=== PATIENT | male | born 1950 | race Hispanic/Latino ===

== ENCOUNTER 2018-04-05 14:02 | Emergency (ER) | payer MEDICARE, SELFPAY ==
[2018-04-05 14:03] VITALS: BP 149/73; PULSE 78; RESP 20; TEMP 36.7; O2SAT 95; BMI 32.3
[2018-04-05] MEDS: Ondansetron 4 MG/2 ML Vial IM (14:50)
[2018-04-05] MEDS: Morphine 4 MG/ML Syringe 8 MG IM (14:50)
[2018-04-05 14:56] VITALS: O2SAT 97
--- NOTE | 2018-04-05 15:17 | ED.DEP ---
ED Disposition - Plan for ED Patient: Chief Complaint: Shortness of Breath Instructions: ED Chronic Pain Management Prescriptions: Oxycodone HCl/Acetaminophen [Percocet 5/325] 1 tablet PO Q6H PRN PRN 3 Days #12 tablet PRN Reason: Pain Referrals: Care Physician,No Primary [Primary Care Provider] - Dawit Posey DO [STAFF PHYSICIAN] - Abdi Miller MD [STAFF PHYSICIAN] -
--- NOTE | 2018-04-05 15:21 | ED.VISSUMM ---
- ER Visit Summary Date of Service: 04/05/18 Chief Complaint: Neck and right shoulder pain History of Present Illness: The patient is a 68 M presenting with neck and right shoulder pain. Patient has a history of cervical radiculopathy. He has neck pain radiating to his right shoulder. He is on Percocet. He recently moved to the area and needs a new physician. He ran out of his Percocet 2 days ago. He is unable to have neck surgery due to severe COPD. He had no new injury. He complains of pain similar to his chronic pain. He has chronic shortness of breath which is no worse than usual. Denies chest pain. Denies fever. Denies other complaints. Physical Examination: Vitals are stable. Patient is afebrile. Alert no acute distress. HEENT exam is unremarkable. Neck is diffuse tenderness, no stepoff Lungs are clear and equal bilaterally. Heart is regular rate and rhythm. Abdomen is soft nontender nondistended. Extremities painful range of motion of right shoulder. No warmth or erythema. Normal distal pulse Skin is warm and dry. No focal neurologic deficit. Remainder of exam is unremarkable. Emergency Department Course and Treatment: Patient is given morphine, Zofran IM. He is given a short course of Percocet. He is given referral to primary care and palliative care. Advised return to ED for worsening complaints. Disposition: Discharge home Impression: Chronic pain, cervical radiculopathy This note was generated with [employer] dictation software. It may contain incorrect words, spelling, and punctuation that were not noted in review of the chart prior to signing ED Disposition - Plan for ED Patient: Chief Complaint: Shortness of Breath Instructions: ED Chronic Pain Management Prescriptions: Oxycodone HCl/Acetaminophen [Percocet 5/325] 1 tablet PO Q6H PRN PRN 3 Days #12 tablet PRN Reason: Pain Referrals: Dawit Posey DO [STAFF PHYSICIAN] - Abdi Miller MD [STAFF PHYSICIAN] - Care Physician,No Primary [Primary Care Provider] -
[2018-04-05 15:37] VITALS: BP 149/77; PULSE 78; RESP 21; O2SAT 99
--- NOTE | 2018-04-05 15:37 | ED.RN ---
PT GIVEN WRITTEN AND VERBAL DISCHARGE INSTRUCTIONS AND HOME GOING PRESCRIPTIONS. PT VERBALIZES UNDERSTANDING AND DENIES ANY FURTHER QUESTIONS. PT ASSISTED OUT OF DEPT BY FAMILY.
== END 2018-04-05 15:39 | disposition home or self-care (01) ==
LOC: ED 14:54
PROVIDERS: Emergency Provider Emergency Medicine
DX: G89.29 Other chronic pain (principal); M54.12 Radiculopathy, cervical region; R06.00 Dyspnea, unspecified; I10 Essential (primary) hypertension; I25.10 Atherosclerotic heart disease of native coronary artery without angina pectoris; J44.9 Chronic obstructive pulmonary disease, unspecified; Z72.0 Tobacco use; Z99.81 Dependence on supplemental oxygen
CPT/HCPCS: 99282; J2405

== ENCOUNTER 2018-04-16 13:33 | Emergency (ER) | payer MEDICARE, SELFPAY ==
[2018-04-16 13:34] VITALS: BP 162/113; PULSE 61; RESP 18; TEMP 36.5; O2SAT 97; BMI 34.7
[2018-04-16 14:02] VITALS: BP 153/88; PULSE 61; RESP 16; O2SAT 98; O2SAT 99
[2018-04-16] MEDS: Ipratropium/Albuterol Sulfate 3 ML AMPUL.NEB INHALATION (14:46)
[2018-04-16 14:47] VITALS: PULSE 62; RESP 18
[2018-04-16] MEDS: oxyCODONE 5 MG Tablet 10 MG PO (14:50)
--- NOTE | 2018-04-16 15:15 | ED.VISSUMM ---
- ER Visit Summary Date of Service: 04/16/18 Chief Complaint: Short of breath, right shoulder pain History of Present Illness: The patient is a 68 M with chronic right shoulder pain. He was unable to have surgery secondary to his severe COPD. He recently moved to the area from [place]. He was previously receiving treatment from palliative care and his primary care physician there. He has been seen by palliative care here locally, but cannot begin treatment with them until he is seen by a new PCP. He was 5 minutes late to his PCP visit 2 days ago and was told he had to reschedule. Patient has been out of his Percocet which she has been on chronically for right shoulder pain. He is complaining of increased pain to that area. Is also complaining of increased shortness of breath and wheezing and feels that he needs a breathing treatment. Physical Examination: Vital signs are unremarkable. Pulse ox is 98% on 3 L nasal cannula which is chronic for him. Head neck examination is unremarkable. Heart is regular rate and rhythm. Lung sounds with expiratory wheezes. Abdomen is soft nontender. Right upper extremity examination reveals mild diffuse tenderness throughout the right shoulder. He has decreased range of motion secondary to pain. He has strong distal pulses. Test Results: [] Emergency Department Course and Treatment: Patient was given a DuoNeb treatment. On repeat evaluation his lungs are clear. He states he has solution for his nebulizer to slat pickler at the pharmacy. He will be given a prescription for Percocet. I will speak with the PCPs office that the patient was to see to have a make a note the patient needs very close follow-up. Treatment Plan: [] Disposition: Discharge Impression: Chronic right shoulder pain Dyspnea, improved secondary to COPD This note was generated with [employer] dictation software. It may contain incorrect words, spelling, and punctuation that were not noted in review of the chart prior to signing ED Disposition - Plan for ED Patient: Chief Complaint: Shortness of Breath Referrals: Care Physician,No Primary [Primary Care Provider] -
--- NOTE | 2018-04-16 15:20 | ED.DCSUM_ITS ---
- ER Visit Summary Date of Service: 04/16/18 Chief Complaint: Short of breath, right shoulder pain History of Present Illness: The patient is a 68 M with chronic right shoulder pain. He was unable to have surgery secondary to his severe COPD. He recently moved to the area from [place]. He was previously receiving treatment from palliative care and his primary care physician there. He has been seen by palliative care here locally, but cannot begin treatment with them until he is seen by a new PCP. He was 5 minutes late to his PCP visit 2 days ago and was told he had to reschedule. Patient has been out of his Percocet which she has been on chronically for right shoulder pain. He is complaining of increased pain to that area. Is also complaining of increased shortness of breath and wheezing and feels that he needs a breathing treatment. Physical Examination: Vital signs are unremarkable. Pulse ox is 98% on 3 L nasal cannula which is chronic for him. Head neck examination is unremarkable. Heart is regular rate and rhythm. Lung sounds with expiratory wheezes. Abdomen is soft nontender. Right upper extremity examination reveals mild diffuse tenderness throughout the right shoulder. He has decreased range of motion secondary to pain. He has strong distal pulses. Test Results: [] Emergency Department Course and Treatment: Patient was given a DuoNeb treatment. On repeat evaluation his lungs are clear. He states he has solution for his nebulizer to machine pecan picker at the pharmacy. He will be given a prescription for Percocet. I will speak with the PCPs office that the patient was to see to have a make a note the patient needs very close follow-up. Treatment Plan: [] Disposition: Discharge Impression: Chronic right shoulder pain Dyspnea, improved secondary to COPD This note was generated with [employer] dictation software. It may contain incorrect words, spelling, and punctuation that were not noted in review of the chart prior to signing ED Disposition - Plan for ED Patient: Chief Complaint: Shortness of Breath Referrals: Care Physician,No Primary [Primary Care Provider] -
--- NOTE | 2018-04-16 15:20 | ED.DEP ---
ED Disposition - Plan for ED Patient: Disposition: Home or Assisted Living Chief Complaint: Shortness of Breath Instructions: ED Chronic Pain Management, ED COPD Flare Prescriptions: Oxycodone HCl/Acetaminophen [Percocet 5/325] 1 tablet PO Q6H PRN PRN 5 Days #20 tablet PRN Reason: Pain Additional Instructions: F/U with physician at 's office as soon as possible
[2018-04-16 15:36] VITALS: BP 148/75; PULSE 70; RESP 16; O2SAT 97
--- NOTE | 2018-04-17 13:06 | CM.ED ---
ED CALLBACK: Follow-up call placed to patient without answer. Voicemail left with return contact information.
== END 2018-04-16 15:39 | disposition home or self-care (01) ==
PROVIDERS: Emergency Provider Emergency Medicine
DX: M25.511 Pain in right shoulder (principal); G89.29 Other chronic pain; J44.9 Chronic obstructive pulmonary disease, unspecified; E11.9 Type 2 diabetes mellitus without complications; I10 Essential (primary) hypertension; I25.2 Old myocardial infarction; Z72.0 Tobacco use; Z85.528 Personal history of other malignant neoplasm of kidney; Z99.81 Dependence on supplemental oxygen
CPT/HCPCS: 94640; 99282

== ENCOUNTER 2019-05-31 08:52 | Observation (INO) | payer MEDICARE, SELFPAY ==
[2019-05-31] VITALS (13 sets, daily range): BP systolic 111–144; BP diastolic 54–83; PULSE 77–98; RESP 14–21; TEMP 36.4–37.3; O2SAT 92–99; BMI 27.9; BMI 32.8; BMI 32.9
--- NOTE | 2019-05-31 09:11 | EKG12_ITS ---
Test Reason : SOB Blood Pressure : / mmHG Vent. Rate : 100 BPM Atrial Rate : 100 BPM P-R Int : 154 ms QRS Dur : 088 ms QT Int : 344 ms P-R-T Axes : 045 -02 087 degrees QTc Int : 443 ms Sinus rhythm with Premature atrial complexes Nonspecific ST and T wave abnormality Abnormal ECG No previous ECGs available Confirmed by LO CARLIN, GERRY ([id number]), graphic editor JEAN MARIE REED ([id number]) on 06/18/2019 11:15:08 AM Referred By: Yoselyn Pollock Confirmed By:GERRY BLANCHARD MD
--- NOTE | 2019-05-31 09:11 | RAD_ITS ---
EXAM DESCRIPTION: PORTABLE AP CHEST CLINICAL HISTORY: 69 years Male, loss of consciousness weakness COMPARISON: None FINDINGS: The thorax is intact. The heart and mediastinum appear to be within normal limits. The lungs appear to be well areated without evidence of pneumonic consolidation or pleural effusion. RAD/Chest 1 View (Portable) IMPRESSION: Normal portable chest. Electronically Signed: Abdi Zarco, at 10:00 EDT Tel , Service support ,
--- NOTE | 2019-05-31 09:25 | ED.VISSUMM ---
- ER Visit Summary Date of Service: 05/31/19 Chief Complaint: Altered LOC History of Present Illness: The patient is a 69 M who presents from hospice. He is in hospice, but it sounds like for palliative care. He has COPD and he has documentation stating that he is full code. He presents for an altered mental status today, but he has no complaints. He has an ongoing cough and some urinary frequency, but otherwise denies pain or any other symptoms or issues. He is on 3.5 L at baseline. He has been compliant with his medications. Physical Examination: Afebrile and vital signs unremarkable. 96% on 3.5 L. Patient is alert and oriented. He exhibits psychomotor slowing, but he is joking and overall pleasant. HEENT exam unremarkable. He is on nasal cannula oxygen. Neck nontender with good range of motion. Lung sounds diminished in all moreira. No wheezing. Heart regular rate and rhythm. Abdomen slightly distended, but he states this is baseline. It is nontender with no guarding or rebound. Extremities nontender with no edema. No sign of cellulitis. Skin unremarkable. Test Results: EKG, labs, urinalysis, chest x-ray pending. Emergency Department Course and Treatment: I talked to hospice to get further information. They said he was acting differently today and they found him on the ground. I added on a CT of his brain. His work-up showed an EKG with sinus rhythm at a rate of [address] and T wave changes. Troponin was normal. White count was 14.8. He had a heart rate as high as 100, but no other signs of sepsis. His urinalysis was normal. His chest x-ray was normal. His metabolic panel appeared to be stable. On reevaluation, the patient is resting comfortably. Vital signs are stable. No additional complaints. I am not sure what is causing the patient's mental status change. He seemed okay here, but according to hospice, he is acting differently. We will add on an ABG. He cannot go back to hospice, and his family cannot care for him at home. Will contact the hospitalist. Treatment Plan: As above Disposition: Admission Impression: Altered mental status, encephalopathy This note was generated with [employer] software. It may contain incorrect words, spelling, and punctuation that were not noted in review of the chart prior to signing ED Disposition - Plan for ED Patient: Referrals: Care Physician,No Primary [NON-STAFF] -
[2019-05-31] MEDS: Ipratropium/Albuterol Sulfate 3 ML AMPUL.NEB INHALATION ×2 (09:38→18:56)
[2019-05-31 09:45] LABS: Absolute Neutrophil Count 12.8 X10^3/uL (2.0-7.7); Basophil# 0.06 X10^3/uL; Basophil% 0.4 % (0-1); Eosinophil# 0.01 X10^3/uL; Eosinophils% 0.1 % (0-5); Hematocrit 50.1 % (40-54); Hemoglobin 16.4 g/dL (13.0-16.5); Lymphocyte % 4.7 % (19-41); Mean Corp Hgb Conc 32.7 g/dL (32-36); Mean Corpuscular Hgb 30.6 pg (27.0-32.0); Mean Corpuscular Volume 93.5 fL (80-94); Mean Platelet Vol. 10.5 fl (6.2-12.0); Monocyte% 7.4 % (0-10); NRBC Flagged by Analyzer 0 % (0-5); Neutrophil # 12.83 X10^3/uL (2.7-7.7); Neutrophil % 86.7 % (47-70); Platelet Count 210 K/mm3 (150-450); RBC Distribution Width CV 13.3 % (11.6-14.6); RBC Distribution Width SD 45.4 fl (35.1-43.9); Red Blood Count 5.36 M/mm3 (4.6-6.2); White Blood Count 14.8 K/mm3 (4.4-11.0)
--- NOTE | 2019-05-31 09:46 | ED.RN ---
Pt was initially assisted to stand to urinate. He was steady on his feet. Pt states shortly after he needs to urinate again. A urinal is in place in bed and p[t encouraged to stay in bed until I can assist. at 0930 I walked by the room and observed pt standing at end of bed with urinal. He appeared steady though he was unable to hold urinal, dropping it twice. I explained to pt the importance of waiting for assist to stand. He was able to move back in bed alone without assist. He was replaced on monitor and O2. He quickly recovers O2 sat from 70's to 90's when O2 is in place.
[2019-05-31 09:55] LABS: Mucous, Urine 0 SEEN /hpf (<or=2+); Red Blood Cells-Urine 0 SEEN /hpf (0-5)
[2019-05-31 09:56] LABS: Color, Urine Yellow (Yellow); Glucose, Dipstick 100 mg/dl (Normal); Ketone-Dipstick Negative (Negative); Leukocyte Esterase-Dipstick 25 /ul (Negative); Nitrite-Dipstick Negative (Negative); Occult Blood-Urine 25 /ul (Negative); Protein-Dipstick 15 mg/dl (Negative); Urine Bilirubin Dipstick Negative (Negative); Urine Clarity Sl. Cloudy (Clear); Urine Urobilinogen Normal (Normal)
[2019-05-31 10:03] LABS: Anion Gap 6 (5-15); BUN 32 mg/dL (7-18); BUN/Creat Ratio 18.1 RATIO (10-20); Calcium,Total 9.3 mg/dL (8.5-10.1); Chloride 89 mmol/L (98-107); Creatinine, Serum 1.77 mg/dL (0.70-1.30); EST Glomerular Filtration Rate 41 mL/min (>60); Est Glom Filt Rate - Afr Amer 50 mL/min (>60); Estimated Creatinine Clearance 36.55 ml/min; Glucose 222 mg/dL (74-106); Potassium 3.4 mmol/L (3.5-5.1); Sodium Level 133 mmol/L (136-145)
[2019-05-31 10:10] LABS: Bacteria 1+ /hpf (None Seen); Hyaline Cast 5-10 SEEN /lpf (0-5); Squamous Epithelial Cells - UA 0-5 SEEN /hpf (0-5); White Blood Cells 0-5 SEEN /hpf (0-5)
--- NOTE | 2019-05-31 10:52 | CT_ITS ---
STUDY: CT BRAIN WITHOUT CONTRAST REASON FOR EXAM: Male, 69 years old. Change in mental status RADIATION DOSAGE (If Supplied By Facility): CTDIvol = ( 44.99 ) mGy, DLP = ( 812.98 ) mGycm TECHNIQUE: Transaxial CT imaging of the brain was performed without administration of intravenous contrast material. Individualized dose optimization techniques were used for this CT. COMPARISON: No relevant priors. FINDINGS: The angela, medulla, and cerebellum appear to be normal. The ventricles and sulci are normal in size and shape. The basal ganglia appear to be normal. The inner and outer tables of the skull are intact. The frontal, ethmoid, maxillary, and sphenoid sinuses are normal. The mastoid air cells are normal. CT/Brain/Head without Contrast IMPRESSION: Normal CT scan of the head. Electronically Signed: Abdi Zarco, at 11:46 EDT Tel , Service support ,
--- NOTE | 2019-05-31 12:18 | HP.PCM_ITS ---
History of Present Illness Date of Admission: 05/31/19 Chief Complaint: altered mental status The patient is a 69 year old M with an extensive past medical history as listed and includes end-stage COPD, BPH and diabetes mellitus. He was admitted through the ED on 05/31/2019 from his hospice facility on account of altered mental status. Patient was a poor historian and could not give a complete history before further discussion with his daughter, son-in-law and hospice nurse, patient had been in hospice for respite care while his daughter was away. His baseline is been alert and oriented x3 according to his hospice nurse. However, patient was found to be very confused today. According to patient he just felt weak and his legs gave out. No other associated symptoms and denied any headache, blurred vision lightheadedness or dizziness or falling and denied any abdominal pain, diarrhea vomiting or shortness of breath. He also had no urinary symptoms. He was therefore brought to the ED. Vitals in the ED was stable. He was saturating at 93% on [address] of the brain was normal and showed no acute intracranial pathology. Chemistry was significant for creatinine of 1.77 and potassium of 3.4 as well as sodium of 133. Total bilirubin was 1.1 and troponin was less than 0.015. Ammonia was not elevated and was less than 10. CBC showed white cell count of 14.8 was otherwise unremarkable. Chest x-ray was normal. ED doctor could not send patient back to hospice because hospice would not accept patient as he had revoked his hospice order and decided he wanted to be full code. UA showed evidence of UTI with 1+ bacteria and negative nitrites with 25 leukocyte esterase. Due to dehydration and UTI, SALMA as well as hypokalemia. [] Past Medical History Allergies epinephrine Allergy (Verified 04/16/18 14:06) Anaphylaxis Home Medications: Ambulatory Orders Medication Instructions Recorded Albuterol Sulfate [Ventolin Hfa] 2 puff INHALATION Q4H PRN PRN 04/05/18 Amitriptyline HCl 50 mg PO QHS 04/05/18 Duloxetine HCl 30 mg PO QHS 04/05/18 Gabapentin [Neurontin] 1,200 mg PO TIDCM 04/05/18 Insulin Detemir [Levemir Flextouch] 20 units SQ BREAKFAST 04/05/18 Ipratropium/Albuterol Sulfate 3 ml INHALATION Q6HWA.RT 04/05/18 [Duoneb] Metformin HCl 1,000 mg PO BID 04/05/18 Sennosides [Senna] 8.6 mg PO BID 04/05/18 Albuterol Aerosols [Ventolin 2.5 mg INHALATION Q4H PRN PRN 05/31/19 Aerosols] Bisacodyl [Dulcolax] 5 mg PO DAILY 05/31/19 Duloxetine HCl 60 mg PO DAILY 05/31/19 Esomeprazole Magnesium [Nexium 20 mg PO DAILY 05/31/19 24Hr] Famotidine 20 mg PO DAILY 05/31/19 Furosemide 40 mg PO DAILY 05/31/19 Guaifenesin 400 mg PO TID PRN 05/31/19 Insulin Detemir [Levemir (BKC)] 20 units SUBCUT QHS 05/31/19 Lorazepam [Ativan] 0.5 mg PO BID 05/31/19 Metolazone 5 mg PO DAILY 05/31/19 Metoprolol Tartrate 50 mg PO BID 05/31/19 Nicotine [Nicoderm Cq (PBKC)] 21 mg TRANSDERM. DAILY 05/31/19 Nitroglycerin (INPATIENT USE) 0.4 mg SUBLINGUAL Q5M PRN 05/31/19 [Nitrostat] Oxycodone [Oxyir] 20 mg PO Q4H PRN PRN 05/31/19 Potassium Chloride [Klor-Con] 20 meq PO DAILY 05/31/19 Sodium Cl For Inhalation [Sodium 3 ml INHALATION Q6H PRN PRN 05/31/19 Chl 3ML] Tamsulosin HCl [Flomax] 0.4 mg PO QHS 05/31/19 proMETHazine tablet [Phenergan 25 mg PO Q8H PRN PRN 05/31/19 tablet] Surgical History: no surgical history Psychiatric History: No pertinent psych hx Lives: - - came from hospice Smoking Status: Former smoker Tobacco Use: Cigarettes Alcohol: None Drugs: None - *Family History Maternal History Items: No pertinent history Paternal History Items: No pertinent history Review of Systems Constitutional: Reports: Malaise, Weakness, Fatigue. Denies: Anorexia, Chills, Fever Eyes: Denies: Blurred vision HEENT: Denies: Head Aches, Sinus Congestion, Sinus Drainage Cardiovascular: Denies: Chest Pain, Palpitations Respiratory: Denies: Cough, Shortness of Breath, Shortness of breath at rest, Sputum production Gastrointestinal: Denies: Abdominal Pain, Nausea, Vomiting Genitourinary: Denies: Dysuria Musculoskeletal: Denies: Joint Pain, Joint Tenderness Skin: Denies: Rash, Wounds Neurological: Denies: Numbness, Tingling, Focal weakness Psychiatric: Denies: Anxiety, Depression, Homicidal Ideations, Suicidal Ideations Hematologic/ Lymphatic: Denies: Easy Bruising, Easy Bleeding VTE Information - Inpt Only VTE Present on Admission: No VTE Pharm Prophylaxis ordered?: Yes - Physical Exam General: Alert, Cooperative, No apparent distress, Confused, Lethargic HEENT: Atraumatic, PERRLA, EOMI, Normocephalic Oral: Dry Mucosa Neck: Supple, No JVD, Negative Carotid Bruits Lungs: - - decreased breath sounds bibasally, no wheezes or crackles.n on 3L of oxygen, which is his baseline Cardiovascular: Regular rate, Regular Rhythm, Normal S1, Normal S2, No murmurs Abdomen: Bowel Sounds Present, Soft, Non Tender, Non-Distended, No Hepato- splenomegaly Extremities: No clubbing, No cyanosis, No edema, Capillary Refill Less than 3 Seconds Skin: No rashes, No breakdown Musculoskeletal: No Tenderness to Palpation of Joints or Extremities Lymphatic: No Cervical, Supraclavicular, or Inguinal Adenopathy Neurological: Cranial nerves II-XII grossly intact, - - occasional resting tremo rs of UEs Psych/Mental Status: - - episodic confusion Vital Signs Temp Pulse Resp BP Pulse Ox 99.0 F 93 14 111/70 97 05/31/19 09:05 05/31/19 12:03 05/31/19 12:03 05/31/19 12:03 05/31/19 12:03 Oxygen Flow Rate (L/min) 4 Oxygen Delivery Method Nasal Cannula Weight: 173 lb Body Mass Index (BMI) 27.9 Laboratory Tests Past 24 Hrs 05/31/19 05/31/19 05/31/19 09:33 09:33 09:39 WBC 14.8 H RBC 5.36 Hgb 16.4 Hct 50.1 MCV 93.5 MCH 30.6 MCHC 32.7 RDW Std Deviation 45.4 H RDW Coeff of [place] 13.3 Plt Count 210 MPV 10.5 Immature Gran % (Auto) 0.700 Neut % (Auto) 86.7 H Lymph % (Auto) 4.7 L Iron % (Auto) 7.4 Eos % (Auto) 0.1 Baso % (Auto) 0.4 Absolute Neuts (auto) 12.8 H Absolute Lymphs (auto) 0.70 L Nucleated RBC % 0 Sodium 133 L Potassium 3.4 L Chloride 89 L Carbon Dioxide 38.0 H Anion Gap 6 BUN 32 H Creatinine 1.77 H Estim Creat Clear Calc 36.55 Est GFR (MDRD) Af Amer 50 L Est GFR (MDRD) Non-Af 41 L BUN/Creatinine Ratio 18.1 Glucose 222 H Calcium 9.3 Troponin I < 0.015 Urine Color Yellow Urine Clarity Sl. Cloudy Urine pH 5.0 Ur Specific [place] 1.020 Urine Protein 15 H Urine Glucose (UA) 100 H Urine Ketones Negative Urine Occult Blood 25 H Urine Nitrite Negative Urine Bilirubin Negative Urine Urobilinogen Normal Ur Leukocyte Esterase 25 H Urine RBC 0 SEEN Urine WBC 0-5 SEEN Ur Squamous Epith Cells 0-5 SEEN Urine Bacteria 1+ Hyaline Casts 5-10 SEEN Urine Mucus 0 SEEN Diagnostic Data Chest X-Ray 05/31/19 09:11 IMPRESSION: Normal portable chest. Electronically Signed: Abdi Zarco, at 10:00 EDT Tel , Service support , Brain CT 05/31/19 10:52 IMPRESSION: Normal CT scan of the head. Electronically Signed: Adbi Zarco at 11:46 EDT Tel , Service support , Assessment/Plan 71-year-old male admitted with a complaint of altered mental status. 1. Acute metabolic encephalopathy due to UTI and SALMA as well as dehydration * admit to Med surg * hydrate with IVF NS @ 125cc/hr * start IV ceftriaxone * Urine culture ordered * fall precautions * hold gabapentin and oxycodone till confusion resolves. * 2. UTI: as under 1. Wbc is 14.8. Manage as under 1. 3. SALMA: Cr is 1.77. baseline not known. Hydrate with IVF and monitor 4. Chronic hypoxic respiratory failure due to end-stage COPD. * 3 L oxygen baseline * breathing treatments prn * 5. End stage COPD: as under 4. patient was in hospice for respite care pulses daughter was out of town. Plans to go back home. 6. CHF (EF unknown): on lasix and metolazone. Not in acute exacerbation 8. Diabetes mellitus: hold metformin o/a of SALMA. ISS> Accuchecks ACHS. On levemir 20IU qam and qhs 9. BPH: on flomax DVT prophylaxis: lovenox Code status: full code * Patient initially stated that he was unsure of his CODE STATUS and wanted hospitalist to discuss code status with his daughter. * CODE STATUS was discussed with patient's daughter and son-in-law decision was that patient would be full code. * Total [id number] time 16 minutes Disposition: patient wishes to go home once stable and does not want to return to hospice. Hospice to follow-up with patient at home once he is discharged. Code Visit Inpatient E&M: 68794 Init Hosp L3 Procedures: 06338 Advncd Care Plan 30 Min
--- NOTE | 2019-05-31 13:13 | NURSING ---
323 loram acute metabolic encephalopathy
[2019-05-31 14:06] LABS: Bedside Glucose 187 mg/dL (70-110)
--- NOTE | 2019-05-31 14:29 | NURSING ---
pt confused on time and place. pt upset that he was admitted and wanting to leave. daughter called and stated she is unable to talk to nursing at this time and will call back with medial info. dr lewis notified that pt upset and wanting to leave. nursing staff at bedside.
--- NOTE | 2019-05-31 14:32 | CASEMGMT ---
Social Work Pt admitted from [facility]. JAVI placed a phone call to [facility] and spoke with Domitila regarding patient's situation. Domitila states that pt has been receiving Hospice services since 05/22/2018 with an admitting diagnosis of COPD. He lives with his daughter Laura who is his primary caregiver. On 05/28/19 [facility] entered the [facility] for [facility] 5 day respite stay so Laura could visit her brother (pt son) who lives in [place]. Laura was to return on 06/02/19 to pick pt up and return home with pt. Pt had an acute episode this morning at the [facility] and staff there felt pt would best be served at hospital as pt is currently a full code status even though he is on the hospice program. Dgt was notified by hospice and made aware that if pt came to the hospital, hospice services would be revoked. Dgt agreeable and with dgt permission, dgt's signed revocation papers. If pt would like to return to hospice services he will need to be a complete new admission. Pt can return to the [facility] only if he re-enrolls in hospice and is symptomatic, he cannot return to his respite stay as he is no longer enrolled in hospice. Charge nurse Aileen made aware of above. JAVI will follow for d/c planning. JUDITH Lozoya
[2019-05-31 14:42] LABS: AST(SGOT) 20 U/L (15-37); Alanine Aminotransfer ALT/SGPT 47 U/L (16-61); Albumin, Serum 3.5 g/dL (3.2-5.0); Alkaline Phosphatase 74 U/L (45-117); Bilirubin, Direct 0.28 mg/dL (0.00-0.30); Globulin 4.2 g/dL (2.2-4.2); Protein, Total 7.7 g/dL (6.4-8.2)
[2019-05-31 14:43] LABS: Ammonia < 10.0 umol/L (11-32)
--- NOTE | 2019-05-31 15:35 | NURSING ---
pt son in law here. dr lewis notified that son in law is here.
[2019-05-31 16:46] LABS: Bedside Glucose 180 mg/dL (70-110)
[2019-05-31] MEDS: metFORMIN HCl 1,000 MG Tablet 1000 MG PO (17:03)
[2019-05-31] MEDS: 0.9% Normal Saline 1,000 ML 75 ML IV (17:12)
[2019-05-31] MEDS: 0.9% NaCl Peripheral Flush Adult/Peds IV (17:12)
[2019-05-31] MEDS: LORazepam 0.5 MG Tablet PO (21:37)
[2019-05-31] MEDS: DULoxetine Hcl 30 MG Capsule PO (21:40)
[2019-05-31] MEDS: Senna Tablet 1 TABLET PO (21:41)
[2019-05-31] MEDS: Amitriptyline 25 MG Tablet 50 MG PO (21:41)
[2019-05-31 21:51] LABS: Bedside Glucose 140 mg/dL (70-110)
[2019-05-31] MEDS: Metoprolol Tartrate 50 MG Tablet PO (21:51)
[2019-05-31] MEDS: Ceftriaxone 1 GM/50 ML BAG IV (21:52)
[2019-05-31] MEDS: Acetaminophen 325 MG Tablet 650 MG PO (22:47)
[2019-06-01] VITALS (7 sets, daily range): BP systolic 131–143; BP diastolic 70–78; PULSE 79–88; RESP 18–20; TEMP 36.7–36.8; O2SAT 95–96
[2019-06-01 05:58] LABS: Absolute Lymphocyte Count 0.71 X10^3/uL (0.83-4.51); Basophil# 0.04 X10^3/uL; Basophil% 0.4 % (0-1); Eosinophil# 0.12 X10^3/uL; Eosinophils% 1.3 % (0-5); Hematocrit 43.4 % (40-54); Hemoglobin 14.5 g/dL (13.0-16.5); Lymphocyte # 0.71 X10^3/ul (4.0); Lymphocyte % 7.4 % (19-41); Mean Corp Hgb Conc 33.4 g/dL (32-36); Mean Corpuscular Hgb 30.4 pg (27.0-32.0); Mean Platelet Vol. 10.6 fl (6.2-12.0); Monocyte# 0.65 X10^3/uL; Monocyte% 6.8 % (0-10); NRBC Flagged by Analyzer 0 % (0-5); Neutrophil # 7.98 X10^3/uL (2.7-7.7); Neutrophil % 83.6 % (47-70); Platelet Count 175 K/mm3 (150-450); RBC Distribution Width CV 13.4 % (11.6-14.6); RBC Distribution Width SD 45.2 fl (35.1-43.9); Red Blood Count 4.77 M/mm3 (4.6-6.2); White Blood Count 9.6 K/mm3 (4.4-11.0)
[2019-06-01 06:24] LABS: Anion Gap 8 (5-15); BUN 31 mg/dL (7-18); BUN/Creat Ratio 21.8 RATIO (10-20); Calcium,Total 8.8 mg/dL (8.5-10.1); Chloride 91 mmol/L (98-107); Creatinine, Serum 1.42 mg/dL (0.70-1.30); EST Glomerular Filtration Rate 53 mL/min (>60); Est Glom Filt Rate - Afr Amer 64 mL/min (>60); Estimated Creatinine Clearance 45.55 ml/min; Glucose 145 mg/dL (74-106); Potassium 3.3 mmol/L (3.5-5.1); Sodium Level 135 mmol/L (136-145)
[2019-06-01] MEDS: Ipratropium/Albuterol Sulfate 3 ML AMPUL.NEB INHALATION (06:56)
[2019-06-01 07:00] LABS: Bedside Glucose 171 mg/dL (70-110)
[2019-06-01] MEDS: Insulin Lispro 100 UNIT/ML INSULN.PEN SC ×2 (07:01→13:10)
[2019-06-01] MEDS: Acetaminophen 325 MG Tablet 650 MG PO (09:11)
[2019-06-01] MEDS: LORazepam 0.5 MG Tablet PO (09:11)
[2019-06-01] MEDS: DULoxetine Hcl 30 MG Capsule PO (09:13)
[2019-06-01] MEDS: Tamsulosin HCl 0.4 MG Capsule PO (09:13)
[2019-06-01] MEDS: Bisacodyl 5 MG Tablet PO (09:13)
[2019-06-01] MEDS: Famotidine 20 MG Tablet PO (09:14)
[2019-06-01] MEDS: Metoprolol Tartrate 50 MG Tablet PO (09:14)
[2019-06-01] MEDS: Ceftriaxone 1 GM/50 ML BAG IV (09:15)
[2019-06-01] MEDS: Pantoprazole Sodium 20 MG Tablet PO (09:15)
--- NOTE | 2019-06-01 09:25 | CASEMGMT ---
Social Work Note Physician updated this worker that pt will be going home today and Hospice will be reevaluating pt in the home for Hospice Services. Erika Jeffers NANOTECHNICIAN, SECURITY SERVICES SPECIALIST
--- NOTE | 2019-06-01 10:14 | PCM.DC ---
You will use the following diet at home:: Cardiac Your food should be the consistency of: Regular Your liquids should be the consistency of: Regular/Thin Discharge Activity: Return to Normal Activity Weight Bearing Status: Weight bearing as tolerated Call your doctor if you observe: Fever of 101 or Higher, Shortness of breath, Fainting spells, - - confusion or change in mental status Instructions: Understanding Urinary Tract Infections (UTIs) Allergies/Adverse Reactions: Allergies epinephrine Allergy (Verified 04/16/18 14:06) Anaphylaxis methadone Adverse Reaction (Verified 05/31/19 16:06) Nausea/Vom/Diarrhea morphine Adverse Reaction (Verified 05/31/19 16:06) Nausea tramadol Adverse Reaction (Verified 05/31/19 16:06) Other Medications to take at Discharge Albuterol Sulfate [Ventolin Hfa] 2 puff INHALATION Q4H PRN PRN 04/05/18 Amitriptyline HCl 50 mg PO QHS 04/05/18 Duloxetine HCl 30 mg PO QHS 04/05/18 Gabapentin [Neurontin] 1,200 mg PO TIDCM 04/05/18 Insulin Detemir [Levemir Flextouch] 20 units SQ BREAKFAST 04/05/18 Ipratropium/Albuterol Sulfate [Duoneb] 3 ml INHALATION Q6HWA.RT 04/05/18 Metformin HCl 1,000 mg PO BID 04/05/18 Sennosides [Senna] 8.6 mg PO BID 04/05/18 Albuterol Aerosols [Ventolin Aerosols] 2.5 mg INHALATION Q4H PRN PRN 05/31/19 Bisacodyl [Dulcolax] 5 mg PO DAILY 05/31/19 Duloxetine HCl 60 mg PO DAILY 05/31/19 Esomeprazole Magnesium [Nexium 24Hr] 20 mg PO DAILY 05/31/19 Famotidine 20 mg PO DAILY 05/31/19 Furosemide 40 mg PO DAILY 05/31/19 Guaifenesin 400 mg PO TID PRN 05/31/19 Insulin Detemir [Levemir FlexPen] 20 units SUBCUT QHS 05/31/19 Lorazepam [Ativan] 0.5 mg PO BID 05/31/19 Metolazone 5 mg PO DAILY 05/31/19 Metoprolol Tartrate 50 mg PO BID 05/31/19 Nicotine [Nicoderm Cq] 21 mg TRANSDERM. DAILY 05/31/19 Nitroglycerin (INPATIENT USE) [Nitrostat] 0.4 mg SUBLINGUAL Q5M PRN 05/31/19 Oxycodone [Oxyir] 20 mg PO Q4H PRN PRN 05/31/19 Potassium Chloride [Klor-Con] 20 meq PO DAILY 05/31/19 Sodium Cl For Inhalation [Sodium Chl 3ML] 3 ml INHALATION Q6H PRN PRN 05/31/19 Tamsulosin HCl [Flomax] 0.4 mg PO QHS 05/31/19 proMETHazine tablet [Phenergan tablet] 25 mg PO Q8H PRN PRN 05/31/19 Ciprofloxacin HCl 500 mg PO BID #10 tab 06/01/19 The following prescriptions were given: Ciprofloxacin HCl 500 mg PO BID #10 tab Transmission Status: Pending to [id number] Primary Care Physician: Care Physician,No Primary [NON-STAFF] - Please follow up with your Primary Care Physician in: PCP in 1-2 weeks Test Results: Test results from this visit will be discussed in further detail at your follow-up appointment, if applicable. When: to be followed up by hospice at home Proposed Discharge Date: 06/01/19
--- NOTE | 2019-06-01 10:18 | DS.PCM_ITS ---
Discharge Date and Diagnosis Date of Admission: 05/31/19 Date of Discharge: 06/01/19 - Primary Discharge Diagnosis acute metabolic encephalopathy hypokalemia SALMA dehydration UTI Hospital Course and Treatment Imaging Results: Diagnostic Data Chest X-Ray 05/31/19 09:11 IMPRESSION: Normal portable chest. Electronically Signed: Abdi Zarco, at 10:00 EDT Tel , Service support , Brain CT 05/31/19 10:52 IMPRESSION: Normal CT scan of the head. Electronically Signed: Abdi Zarco, at 11:46 EDT Tel , Service support , Operations: None Procedures: None Summary of Care Provided: The patient is a 69 year old M with an extensive past medical history as listed and includes end-stage COPD, BPH and diabetes mellitus. He was admitted through the ED on 05/31/2019 from his hospice facility on account of altered mental status. Patient was a poor historian and could not give a complete history before further discussion with his daughter, son-in-law and hospice nurse, patient had been in hospice for respite care while his daughter was away. His baseline is been alert and oriented x3 according to his hospice nurse. However, patient was found to be very confused today. According to patient he just felt weak and his legs gave out. No other associated symptoms and denied any headache, blurred vision lightheadedness or dizziness or falling and denied any abdominal pain, diarrhea vomiting or shortness of breath. He also had no urinary symptoms. He was therefore brought to the ED. Vitals in the ED was stable. He was saturating at 93% on [address] of the brain was normal and showed no acute intracranial pathology. Chemistry was significant for creatinine of 1.77 and potassium of 3.4 as well as sodium of 133. Total bilirubin was 1.1 and troponin was less than 0.015. Ammonia was not elevated and was less than 10. CBC showed white cell count of 14.8 was otherwise unremarkable. Chest x-ray was normal. ED doctor could not send patient back to hospice because hospice would not accept patient as he had revoked his hospice order and decided he wanted to be full code. UA showed evidence of UTI with 1+ bacteria and negative nitrites with 25 leukocyte esterase. He was admitted to be managed for acute metabolic encephalopathy due to dehydration and UTI, SALMA as well as hypokalemia. Patient was hydrated with IVF and started on IV ceftriaxone for UTI. Potassium was also replaced. Acute metabolic encephalopathy resolved, and hypokalemia also improved. Patient remained stable and wanted to be discharged back home on 06/01/19. He was discharged with a script for PO ciprofloxacin 500mg bid for 5 days. He is to follow up with his PCP. He is also to keep well hydrated. Cr was down to 1.42 at time of discharge, from 1.77 on admission. He is also to be followed up at home by hospice for him and family to decide whether he wants to go back on hospice or not. Patient seen and examined. He had an uneventful night and had no problems. Review of systems was otherwise negative. Labs and vitals reviewed. Home medications reviewed and reconciled. o/e: Vital Signs Height 5 ft 6 in Weight: 203 lb 11.314 oz Weight in Pounds 203.7 lbs Pulse Ox 96 Temperature 98.1 F Pulse Rate 80 Respiratory Rate 20 Blood Pressure 131/70 Blood Pressure Position Sitting General: Alert, Cooperative, No apparent distress HEENT: Atraumatic, PERRLA, EOMI, Normocephalic Oral: Dry Mucosa Neck: Supple, No JVD, Negative Carotid Bruits Lungs: - - decreased breath sounds bibasally, no wheezes or crackles.n on 3L of oxygen, which is his baseline Cardiovascular: Regular rate, Regular Rhythm, Normal S1, Normal S2, No murmurs Abdomen: Bowel Sounds Present, Soft, Non Tender, Non-Distended, No Hepato-splenomegaly Extremities: No clubbing, No cyanosis, No edema, Capillary Refill Less than 3 Seconds Skin: No rashes, No breakdown Musculoskeletal: No Tenderness to Palpation of Joints or Extremities Lymphatic: No Cervical, Supraclavicular, or Inguinal Adenopathy Neurological: Cranial nerves II-XII grossly intact, - - occasional resting tremors of UEs Psych/Mental Status: - - normal affect. Confusion has improved Plan as above. - Physical Exam Vital Signs Temp Pulse Resp BP Pulse Ox 98.2 F 80 18 143/78 H 96 06/01/19 04:18 06/01/19 09:14 06/01/19 10:00 06/01/19 04:18 06/01/19 10:00 Oxygen Flow Rate (L/min) 3 Oxygen Delivery Method Nasal Cannula Weight: 203 lb 11.314 oz Body Mass Index (BMI) 32.8 Intake and Output for Last 24 Hours 05/30/19 05/31/19 06/01/19 23:59 23:59 23:59 Intake Total 1050 / 1600 1400 / 1400 Output Total 500 / 800 500 / 500 Balance 550 / 800 900 / 900 Laboratory Tests Past 24 Hrs 05/31/19 05/31/19 06/01/19 13:59 13:59 05:44 WBC 9.6 RBC 4.77 Hgb 14.5 Hct 43.4 MCV 91.0 MCH 30.4 MCHC 33.4 RDW Std Deviation 45.2 H RDW Coeff of [place] 13.4 Plt Count 175 MPV 10.6 Immature Gran % (Auto) 0.500 Neut % (Auto) 83.6 H Lymph % (Auto) 7.4 L [place] % (Auto) 6.8 Eos % (Auto) 1.3 Baso % (Auto) 0.4 Absolute Neuts (auto) 8.0 H Absolute Lymphs (auto) 0.71 L Nucleated RBC % 0 Sodium Potassium Chloride Carbon Dioxide Anion Gap BUN Creatinine Estim Creat Clear Calc Est GFR (MDRD) Af Amer Est GFR (MDRD) Non-Af BUN/Creatinine Ratio Glucose Calcium Total Bilirubin 1.10 H Direct Bilirubin 0.28 AST 20 ALT 47 Alkaline Phosphatase 74 Ammonia < 10.0 L Total Protein 7.7 Albumin 3.5 Globulin 4.2 06/01/19 05:44 WBC RBC Hgb Hct MCV MCH MCHC RDW Std Deviation RDW Coeff of [place] Plt Count MPV Immature Gran % (Auto) Neut % (Auto) Lymph % (Auto) [place] % (Auto) Eos % (Auto) Baso % (Auto) Absolute Neuts (auto) Absolute Lymphs (auto) Nucleated RBC % Sodium 135 L Potassium 3.3 L Chloride 91 L Carbon Dioxide 36.0 H Anion Gap 8 BUN 31 H Creatinine 1.42 H Estim Creat Clear Calc 45.55 Est GFR (MDRD) Af Amer 64 Est GFR (MDRD) Non-Af 53 L BUN/Creatinine Ratio 21.8 H Glucose 145 H Calcium 8.8 Total Bilirubin Direct Bilirubin AST ALT Alkaline Phosphatase Ammonia Total Protein Albumin Globulin POC Glucose 06/01/19 05/31/19 05/31/19 06:55 21:39 16:33 POC Glucose 171 H 140 H 180 H 05/31/19 13:56 POC Glucose 187 H Discharge Diet: 1800 Calorie Control Diet Discharge Activity: Return to Normal Activity Weight Bearing Status: Weight bearing as tolerated Call your doctor if you observe: Fever of 101 or Higher, Shortness of breath, Fainting spells, - - confusion or change in mental status Home Medications: Medications to take at Discharge Albuterol Sulfate [Ventolin Hfa] 2 puff INHALATION Q4H PRN PRN 04/05/18 Amitriptyline HCl 50 mg PO QHS 04/05/18 Duloxetine HCl 30 mg PO QHS 04/05/18 Gabapentin [Neurontin] 1,200 mg PO TIDCM 04/05/18 Insulin Detemir [Levemir Flextouch] 20 units SQ BREAKFAST 04/05/18 Ipratropium/Albuterol Sulfate [Duoneb] 3 ml INHALATION Q6HWA.RT 04/05/18 Metformin HCl 1,000 mg PO BID 04/05/18 Sennosides [Senna] 8.6 mg PO BID 04/05/18 Albuterol Aerosols [Ventolin Aerosols] 2.5 mg INHALATION Q4H PRN PRN 05/31/19 Bisacodyl [Dulcolax] 5 mg PO DAILY 05/31/19 Duloxetine HCl 60 mg PO DAILY 05/31/19 Esomeprazole Magnesium [Nexium 24Hr] 20 mg PO DAILY 05/31/19 Famotidine 20 mg PO DAILY 05/31/19 Furosemide 40 mg PO DAILY 05/31/19 Guaifenesin 400 mg PO TID PRN 05/31/19 Insulin Detemir [Levemir FlexPen] 20 units SUBCUT QHS 05/31/19 Lorazepam [Ativan] 0.5 mg PO BID 05/31/19 Metolazone 5 mg PO DAILY 05/31/19 Metoprolol Tartrate 50 mg PO BID 05/31/19 Nicotine [Nicoderm Cq] 21 mg TRANSDERM. DAILY 05/31/19 Nitroglycerin (INPATIENT USE) [Nitrostat] 0.4 mg SUBLINGUAL Q5M PRN 05/31/19 Oxycodone [Oxyir] 20 mg PO Q4H PRN PRN 05/31/19 Potassium Chloride [Klor-Con] 20 meq PO DAILY 05/31/19 Sodium Cl For Inhalation [Sodium Chl 3ML] 3 ml INHALATION Q6H PRN PRN 05/31/19 Tamsulosin HCl [Flomax] 0.4 mg PO QHS 05/31/19 proMETHazine tablet [Phenergan tablet] 25 mg PO Q8H PRN PRN 05/31/19 Ciprofloxacin HCl 500 mg PO BID #10 tab 06/01/19 Following Prescrptions Were Given to Patient: Ciprofloxacin HCl 500 mg PO BID #10 tab Transmission Status: Received by [id number] Primary Care Physician: Care Physician,No Primary [NON-STAFF] - Please follow up with your Primary Care Physician in: PCP in 1-2 weeks When: to be followed up by hospice at home Patient Instructions: Understanding Urinary Tract Infections (UTIs) Disposition: Home Minutes spent on discharge:: 45 Patient Condition:: Stable Medical Necessity - Tobacco Use Smoking Status: Former smoker Tobacco Use: Cigarettes Meaningful Use Info Meaningful Use Diagnoses (Choose all that apply): None applicable Code Visit OBSV E&M: 19702 Observation care discharge
[2019-06-01 11:46] LABS: Bedside Glucose 187 mg/dL (70-110)
== END 2019-06-01 18:56 | disposition home or self-care (01) ==
LOC: ED 12:24 → MS3 12:42
PROVIDERS: Admitting Provider Student in an Organized Health Care Education/Training Program; Emergency Provider Emergency Medicine; Family Provider Family Medicine; PCP Family Medicine; Referring Provider Student in an Organized Health Care Education/Training Program; Visit Provider Student in an Organized Health Care Education/Training Program
DX: R41.82 Altered mental status, unspecified (principal); G93.41 Metabolic encephalopathy; E87.6 Hypokalemia; N40.0 Benign prostatic hyperplasia without lower urinary tract symptoms; E11.9 Type 2 diabetes mellitus without complications; N17.9 Acute kidney failure, unspecified; E86.0 Dehydration; J44.9 Chronic obstructive pulmonary disease, unspecified; I50.9 Heart failure, unspecified; J96.11 Chronic respiratory failure with hypoxia; N39.0 Urinary tract infection, site not specified; Z79.899 Other long term (current) drug therapy; Z79.4 Long term (current) use of insulin; Z87.891 Personal history of nicotine dependence
CPT/HCPCS: 36415; 70450; 71045; 80048; 80076; 81001; 82140; 82962; 84484; 85025; 87077; 87086; 87088; 87186; 93005; 94640; 96361; 96365; 96366; 99218; 99285; 99406; J7030; A4216; G0378

== ENCOUNTER → 2020-05-13 18:04 | Outpatient (CLI) | payer SELFPAY ==
[2019-05-31 13:15] VITALS: BMI 32.8
[2020-05-13 18:23] LABS: Absolute Lymphocyte Count 1.59 X10^3/uL (0.83-4.51); Absolute Neutrophil Count 6.8 X10^3/uL (2.0-7.7); Basophil# 0.06 X10^3/uL; Basophil% 0.7 % (0-1); Eosinophils% 1.1 % (0-5); Hematocrit 44.5 % (40-54); Hemoglobin 14.5 g/dL (13.0-16.5); Lymphocyte # 1.59 X10^3/ul (4.0); Lymphocyte % 17.5 % (19-41); Mean Corp Hgb Conc 32.6 g/dL (32-36); Mean Corpuscular Hgb 31.4 pg (27.0-32.0); Mean Corpuscular Volume 96.3 fL (80-94); Mean Platelet Vol. 10.5 fl (6.2-12.0); Monocyte# 0.52 X10^3/uL; Monocyte% 5.7 % (0-10); NRBC Flagged by Analyzer 0 % (0-5); Neutrophil # 6.75 X10^3/uL (2.7-7.7); Neutrophil % 74.2 % (47-70); Platelet Count 230 K/mm3 (150-450); RBC Distribution Width CV 14.1 % (11.6-14.6); RBC Distribution Width SD 49.9 fl (35.1-43.9); Red Blood Count 4.62 M/mm3 (4.6-6.2); White Blood Count 9.1 K/mm3 (4.4-11.0)
[2020-05-13 18:48] LABS: AST(SGOT) 26 U/L (15-37); Alanine Aminotransfer ALT/SGPT 32 U/L (16-61); Albumin, Serum 3.5 g/dL (3.2-5.0); Alkaline Phosphatase 65 U/L (45-117); Anion Gap 6 (5-15); BUN 15 mg/dL (7-18); BUN/Creat Ratio 10.6 RATIO (10-20); Calcium,Total 8.7 mg/dL (8.5-10.1); Chloride 102 mmol/L (98-107); Creatinine, Serum 1.41 mg/dL (0.70-1.30); EST Glomerular Filtration Rate 53 mL/min (>60); Est Glom Filt Rate - Afr Amer 64 mL/min (>60); Globulin 3.5 g/dL (2.2-4.2); Glucose 127 mg/dL (74-106); Lipase 136 U/L (73-393); Potassium 4.1 mmol/L (3.5-5.1); Sodium Level 138 mmol/L (136-145)
== END ==
PROVIDERS: PCP Family Medicine; Referring Provider Nurse Practitioner Acute Care; Visit Provider Nurse Practitioner Acute Care
DX: N17.9 Acute kidney failure, unspecified (principal)
CPT/HCPCS: 80053; 83690; 85025